=== PATIENT | male | born 1955 | race Caucasian/White ===

== ENCOUNTER → 2017-12-28 | Outpatient (CLI) | payer OTHER ==
[~2017-12-28] MED LIST: CALC250T2 PO; CHON250C PO; LOSA25TA16 PO; METO25TA6 PO; OMEP10CA41 PO; RIVA10TA PO; SERT100T PO; VITA400T7 PO
== END | disposition home or self-care (01) ==
LOC: OIH 14:58
PROVIDERS: ATTEND Internal Medicine Cardiovascular Disease
DX: Z13.6 Encounter for screening for cardiovascular disorders (principal); I48.92 Unspecified atrial flutter
CPT/HCPCS: 75571